=== PATIENT | male | born 1980 | race Caucasian/White ===

== ENCOUNTER 2019-02-14 19:17 | Emergency (ER) | payer OTHER, SELFPAY ==
[2019-02-14 19:26] VITALS: BP 139/77; PULSE 64; RESP 15; TEMP 36.6; O2SAT 96; BMI 22.7
--- NOTE | 2019-02-14 19:30 | ED.ABDPAIN ---
HPI - Abdominal Pain <GIOVANI Sharpe - Last Filed: 02/14/19 22:36> General Chief Complaint: Abdominal Pain Stated Complaint: Kidney stones Time Seen by Provider: 02/14/19 19:18 Source: patient and family Mode of arrival: ambulatory Limitations: no limitations History of Present Illness HPI narrative: 38-year-old healthy male presents emergency department after being seen in the clinic on [facility] this evening for colicky epigastric pain that occurred suddenly while he was sleeping and he was woken by the pain, he complained of associated diaphoresis and difficulty taking a very deep breath. He states it was a sharp cramping 10/10 that resolved after a few hours but then occurred again. At the clinic he was given injection of Toradol which helped relieve the pain. He does not have any pain at this time but he is leaving for [place] on Sunday and is worried about possible complications during trial. He denies alleviating or aggravating factors of his pain. Denies fevers, chills, chest pain, shortness of breath, abdominal pain at this time, nausea, vomiting, diarrhea, dysuria, or syncope. He denies any major abdominal surgeries. MD complaint: abdominal pain Onset (ago): hour(s) Pain Consistency: intermittent Location: epigastric Radiation: none Relieving factors: nothing Exacerbating factors: nothing Related Data Allergies Allergy/AdvReac Type Severity Reaction Status Date / Time No Known Drug Allergies Allergy Verified 02/14/19 19:26 Review of Systems <GIOVANI Sharpe - Last Filed: 02/14/19 22:36> Review of Systems REVIEW OF SYSTEMS: GENERAL: Denies fever, chills, malaise, or wt. loss. HENT: No head trauma, sore throat, or dysphagia. EYES: No loss of vision, double vision, eye pain, or irritation. CARDIOVASCULAR: No chest pain, palpitations, or orthopnea. RESPIRATORY: No shortness of breath or cough. GASTROINTESTINAL: Complains of epigastric abdominal pain, see HPI GENITOURINARY: No flank pain, urinary incontinence, hesitancy, frequency, or dysuria. MUSCULOSKELETAL: No pain, weakness, or trauma. INTEGUMENTARY: No rash, lesions, or pruritus. NEURO: No numbness, tingling, memory loss, confusion, or headaches. PSYCH: No behavior or mood changes. PFSH <GIOVANI Sharpe - Last Filed: 02/14/19 22:36> Medical History No significant medical problems (Acute) Social History Smoking Status: Never smoker Social History Smoking Status: Never smoker Exam <GIOVANI Sharpe - Last Filed: 02/14/19 22:36> Initial Vital Signs Initial Vital Signs: Vital Signs Temperature 97.9 F 02/14/19 19:26 Pulse Rate 64 02/14/19 19:26 Respiratory Rate 15 02/14/19 19:26 Blood Pressure 139/77 02/14/19 19:26 Pulse Oximetry 96 02/14/19 19:26 PHYSICAL EXAMINATION: GENERAL: Well groomed, alert, and cooperative. Answers questions promptly and appropriately. Vital signs noted. HENT: Normocephalic, atraumatic. Hearing intact. Oral mucosa is pink and moist. EYES: Conjunctiva pink, sclera white, no periorbital swelling. CARDIOVASCULAR: S1 and S2 sounds normal. Regular rate and rhythm, no murmurs, clicks, or bruits. No pedal edema. RESPIRATORY: Normal respiratory rate, trachea midline, airway patent. No stridor, nasal flaring or accessory muscle use. Lungs are clear in all [place] without wheeze, rhonchi, or crackles. GASTROINTESTINAL: Bowel sounds normoactive. Abdomen is soft and really nontender, slight increase tenderness to the right epigastric area. No organomegaly, no palpable masses. GENITALURINARY: No flank tenderness. MUSCULOSKELETAL: Normal gait and coordination. Equal tone and mass bilaterally. EXTREMITIES: CMS intact, no pedal edema. SKIN: Warm, dry, soft, appropriate color for ethnicity. No lesions, rashes, or wounds. NEURO: Alert and Oriented X 3. Good coordination. No ataxia, or sensory deficits, or cognitive issues. PSYCH: Appropriate affect and mood. <Jim Yuan DO - Last Filed: 02/15/19 03:45> Initial Vital Signs Initial Vital Signs: Vital Signs Temperature 97.9 F 02/14/19 19:26 Pulse Rate 64 02/14/19 19:26 Respiratory Rate 15 02/14/19 19:26 Blood Pressure 139/77 07/26/19 19:26 Pulse Oximetry 96 02/14/19 19:26 Course <Ivonne GIOVANI Mayorga - Last Filed: 02/14/19 22:36> Course Narrative: An extensive conversation with the patient about seeking surgical care here or about his prevents of returning to his home state. I explained that his symptoms may get worse, and may results in worsening liver enzymes, infection, , or disability. Very strict return precautions were given to patient that if he were to develop any worsening symptoms he was return to the nearest emergency department immediately. If he chose to go home you with to remain on a clear liquid diet as per surgery recommendations and he was to seek care immediately when he returns home. Labs and imaging results were given to patient that he can't take to his appointment. Patient and his partner chose to try to find an earlier flight home so he can seek medical care even quicker. Orders Ordered: ED Orders 02/14/19 19:30 EKG-12 Lead Stat 02/14/19 19:31 US abdomen limited Stat 02/14/19 19:42 Complete Blood Count AUTO DIFF Stat Comprehensive Metabolic Panel Stat Lipase Stat 02/14/19 19:57 Urine Microscopic Stat Reevaluation(s) Reevaluation #1: Patient remains pain free throughout the emergency department stay. Consultations Consultation #1: Consulted the surgeon, Dr. Acuña about patient's request to have his surgery at home in [place]. Dr. Cantor stated that it was ultimately the patient's choice, however if he chose to seek care outside of this hospital, he was to remain on a clear liquid diet and see care as soon as possible. Otherwise, he was to be admitted today. Vital Signs - 8 hr 02/14/19 21:19 Pulse Rate 84 Respiratory Rate 15 Blood Pressure [Left Arm] 125/80 Pulse Oximetry 100 <Jim Yuan DO - Last Filed: 02/15/19 03:45> Orders Ordered: ED Orders 02/14/19 19:30 EKG-12 Lead Stat 02/14/19 19:31 US abdomen limited Stat 02/14/19 19:42 Complete Blood Count AUTO DIFF Stat Comprehensive Metabolic Panel Stat Lipase Stat 02/14/19 19:57 Urine Microscopic Stat Vital Signs - 8 hr 02/14/19 21:19 Pulse Rate 84 Respiratory Rate 15 Blood Pressure [Left Arm] 125/80 Pulse Oximetry 100 MDM - Abdominal Pain <Ivonne MayorgaGIOVANI - Last Filed: 02/14/19 22:36> Medical Records Attestation: I reviewed the patient's medical records. Lab Data Attestation: I reviewed the patient's lab results. Result diagrams: 02/14/19 19:42 02/14/19 19:42 Lab Results 02/14/19 02/14/19 02/14/19 Range/Units 19:42 19:42 19:42 WBC 8.1 (4.5-11.0) X10^3/uL RBC 4.86 (4.5-5.9) X10^6/uL Hgb 14.6 (13.5-17.5) g/dL Hct 41.7 (41-53) % MCV 85.8 (80-100) fL MCH 30.0 (26-34) PG MCHC 35.0 (30-36) % RDW 12.9 (11.6-14.8) % Plt Count 222 (150-400) X10^3/uL Neut % (Auto) 72.6 (50-75) % Lymph % (Auto) 16.9 L (25-40) % [place] % (Auto) 9.9 (3-14) % Eos % (Auto) 0.2 L (2-4) % Baso % (Auto) 0.4 (0-2) % Neut # (Auto) 5900 (1531-1442) /uL Lymph # (Auto) 1400 (3304-4170) /uL [place] # (Auto) 800 (0-900) /uL Eos # (Auto) 0 (0-450) /uL Baso # (Auto) 0 (0-100) /uL Sodium 138 (137-145) mmol/L Potassium 3.7 (3.4-5.1) mmol/L Chloride 103 (98-107) mmol/L Carbon Dioxide 23 (22-32) mmol/L BUN 15 (9-20) mg/dL Creatinine 0.80 (0.66-1.25) mg/dL Estimated GFR > 60.0 (>60) mL/min BUN/Creatinine Ratio 18.8 (6-22) Glucose 112 H (70-100) mg/dL Calcium 10.1 (8.4-10.2) mg/dL Total Bilirubin 1.4 H (0.2-1.3) mg/dL AST 684 H (17-59) IU/L ALT 462 H (21-72) IU/L Alkaline Phosphatase 83 (38-126) U/L Total Protein 7.7 (6.3-8.2) g/dL Albumin 4.9 (3.5-5.0) g/dL Globulin 2.8 (1.7-4.1) g/dL Albumin/Globulin Ratio 1.8 (1.0-2.8) Lipase 107 (23-300) U/L Urine RBC (0-5/HPF) Urine WBC (0-5/HPF) Urine Bacteria (None) Ur Culture Indicated? Micro UA Comment 02/14/19 Range/Units 19:57 WBC (4.5-11.0) X10^3/uL RBC (4.5-5.9) X10^6/uL Hgb (13.5-17.5) g/dL Hct (41-53) % MCV (80-100) fL MCH (26-34) PG MCHC (30-36) % RDW (11.6-14.8) % Plt Count (150-400) X10^3/uL Neut % (Auto) (50-75) % Lymph % (Auto) (25-40) % [place] % (Auto) (3-14) % Eos % (Auto) (2-4) % Baso % (Auto) (0-2) % Neut # (Auto) (9767-8552) /uL Lymph # (Auto) (7914-2557) /uL [place] # (Auto) (0-900) /uL Eos # (Auto) (0-450) /uL Baso # (Auto) (0-100) /uL Sodium (137-145) mmol/L Potassium (3.4-5.1) mmol/L Chloride (98-107) mmol/L Carbon Dioxide (22-32) mmol/L BUN (9-20) mg/dL Creatinine (0.66-1.25) mg/dL Estimated GFR (>60) mL/min BUN/Creatinine Ratio (6-22) Glucose (70-100) mg/dL Calcium (8.4-10.2) mg/dL Total Bilirubin (0.2-1.3) mg/dL AST (17-59) IU/L ALT (21-72) IU/L Alkaline Phosphatase (38-126) U/L Total Protein (6.3-8.2) g/dL Albumin (3.5-5.0) g/dL Globulin (1.7-4.1) g/dL Albumin/Globulin Ratio (1.0-2.8) Lipase (23-300) U/L Urine RBC None seen (0-5/HPF) Urine WBC None seen (0-5/HPF) Urine Bacteria None seen (None) Ur Culture Indicated? Cult not indicated Micro UA Comment Microscopic normal Point of care testing: Urine Dip Bedside Urine Glucose Negative Bedside Urine Bilirubin - Negative Bedside Urine Ketone - Negative Urine Specific [place] 1.020 Bedside Urine Occult Blood - Negative Bedside Urine pH 6.0 Bedside Urine Protein - Negative Bedside Urine Urobilinogen +/- 1mg Bedside Urine Nitrite - Negative Bedside Urine Leukocytes +/- 15 Esterase Imaging Data US - abdomen: Radiologist's impression: [place] [address] Ultrasound Report Signed Patient: Bautista Darden WMR#: [id number] : 1980Acct:[id number] Age/Sex: 38 / MDate of Service: 02/14/19 Loc: ED Accession Number: [id number] Procedure: US abdomen limited Ordering Provider: Ivonne Mayorga PROCEDURE: US ABDOMEN LIMITED INDICATIONS: colicky epigastric pain TECHNIQUE: Real-time focused scanning was performed of the right upper quadrant, with image documentation. COMPARISON: None. FINDINGS: There are gallstones demonstrated within the gallbladder with no definite impacted stone visualized in the region of the gallbladder neck. There is mild gallbladder wall thickening measuring 3-4 mm. There is trace pericholecystic fluid. No intrahepatic biliary ductal dilatation. The visualized common bile duct is within normal limits measuring up to 6 mm. The distal common bile duct is not well visualized. Visualized pancreas demonstrates no peripancreatic fluid collections. Right kidney demonstrates no hydronephrosis. No focal hepatic mass lesion identified. IMPRESSION: 1. Cholelithiasis with mild gallbladder wall thickening and trace pericholecystic fluid may reflect developing cholecystitis. Dictated by: Michael Nur M.D. on 02/14/2019 at 20:52 Approved by: Michael Nur M.D. on 02/14/2019 at 20:59 ECG Data Interpretation: Sinus bradycardia, rate 59, NE interval 139, QTC 386, no ectopy, no ST elevation or ST depression, no T-wave abnormality. Right bundle branch block noted in V1 and V2. EKG was also viewed by Dr. Yuan. [facility] Narrative Medical decision making narrative: Patient's symptoms indicated an acute gallbladder that require surgical intervention (explained laboy of pain, elevated liver enzymes, radiological changes of his gallbladder seen on ultrasound, cholelithiasis). However, patient opted to seek care elsewhere. Strict return precautions were given and follow-up instructions discussed extensively. Very little concern for infection as his white count was not elevated, and he did not exhibit any systemic signs of infection. Very low concern for cardiac disease due to lack of other symptoms such as chest pain or shortness of breath as well as a normal EKG. <Jim Yuan, DO - Last Filed: 02/15/19 03:45> Lab Data Lab Results 02/14/19 02/14/19 02/14/19 Range/Units 19:42 19:42 19:42 WBC 8.1 (4.5-11.0) X10^3/uL RBC 4.86 (4.5-5.9) X10^6/uL Hgb 14.6 (13.5-17.5) g/dL Hct 41.7 (41-53) % MCV 85.8 (80-100) fL MCH 30.0 (26-34) PG MCHC 35.0 (30-36) % RDW 12.9 (11.6-14.8) % Plt Count 222 (150-400) X10^3/uL Neut % (Auto) 72.6 (50-75) % Lymph % (Auto) 16.9 L (25-40) % [place] % (Auto) 9.9 (3-14) % Eos % (Auto) 0.2 L (2-4) % Baso % (Auto) 0.4 (0-2) % Neut # (Auto) 5900 (2770-0715) /uL Lymph # (Auto) 1400 (2712-5324) /uL [place] # (Auto) 800 (0-900) /uL Eos # (Auto) 0 (0-450) /uL Baso # (Auto) 0 (0-100) /uL Sodium 138 (137-145) mmol/L Potassium 3.7 (3.4-5.1) mmol/L Chloride 103 (98-107) mmol/L Carbon Dioxide 23 (22-32) mmol/L BUN 15 (9-20) mg/dL Creatinine 0.80 (0.66-1.25) mg/dL Estimated GFR > 60.0 (>60) mL/min BUN/Creatinine Ratio 18.8 (6-22) Glucose 112 H (70-100) mg/dL Calcium 10.1 (8.4-10.2) mg/dL Total Bilirubin 1.4 H (0.2-1.3) mg/dL AST 684 H (17-59) IU/L ALT 462 H (21-72) IU/L Alkaline Phosphatase 83 (38-126) U/L Total Protein 7.7 (6.3-8.2) g/dL Albumin 4.9 (3.5-5.0) g/dL Globulin 2.8 (1.7-4.1) g/dL Albumin/Globulin Ratio 1.8 (1.0-2.8) Lipase 107 (23-300) U/L Urine RBC (0-5/HPF) Urine WBC (0-5/HPF) Urine Bacteria (None) Ur Culture Indicated? Micro UA Comment 02/14/19 Range/Units 19:57 WBC (4.5-11.0) X10^3/uL RBC (4.5-5.9) X10^6/uL Hgb (13.5-17.5) g/dL Hct (41-53) % MCV (80-100) fL MCH (26-34) PG MCHC (30-36) % RDW (11.6-14.8) % Plt Count (150-400) X10^3/uL Neut % (Auto) (50-75) % Lymph % (Auto) (25-40) % [place] % (Auto) (3-14) % Eos % (Auto) (2-4) % Baso % (Auto) (0-2) % Neut # (Auto) (6359-1082) /uL Lymph # (Auto) (1352-6683) /uL [place] # (Auto) (0-900) /uL Eos # (Auto) (0-450) /uL Baso # (Auto) (0-100) /uL Sodium (137-145) mmol/L Potassium (3.4-5.1) mmol/L Chloride (98-107) mmol/L Carbon Dioxide (22-32) mmol/L BUN (9-20) mg/dL Creatinine (0.66-1.25) mg/dL Estimated GFR (>60) mL/min BUN/Creatinine Ratio (6-22) Glucose (70-100) mg/dL Calcium (8.4-10.2) mg/dL Total Bilirubin (0.2-1.3) mg/dL AST (17-59) IU/L ALT (21-72) IU/L Alkaline Phosphatase (38-126) U/L Total Protein (6.3-8.2) g/dL Albumin (3.5-5.0) g/dL Globulin (1.7-4.1) g/dL Albumin/Globulin Ratio (1.0-2.8) Lipase (23-300) U/L Urine RBC None seen (0-5/HPF) Urine WBC None seen (0-5/HPF) Urine Bacteria None seen (None) Ur Culture Indicated? Cult not indicated Micro UA Comment Microscopic normal Point of care testing: Urine Dip Bedside Urine Glucose Negative Bedside Urine Bilirubin - Negative Bedside Urine Ketone - Negative Urine Specific [place] 1.020 Bedside Urine Occult Blood - Negative Bedside Urine pH 6.0 Bedside Urine Protein - Negative Bedside Urine Urobilinogen +/- 1mg Bedside Urine Nitrite - Negative Bedside Urine Leukocytes +/- 15 Esterase Discharge Plan Departure Patient Disposition: Home Clinical Impression: Cholelithiasis Qualifiers: Cholelithiasis location: gallbladder Cholecystitis presence: with cholecystitis Cholecystitis acuity: acute Biliary obstruction: without biliary obstruction Qualified Code(s): K80.00 - Calculus of gallbladder with acute cholecystitis without obstruction Discharge Date/Time: 02/14/19 21:50 Interventions: ED Discharge Assessment Last Done: 02/14/19 21:49 Instructions: DI for Gallstones Activity Restrictions/Additional Instructions: Thank you for entrusting me with your care today. As discussed, you have gallstones as well as inflammation of her gallbladder which need surgical attention. You have chosen to return to your home state to seek care, please remain on a clear liquid diet until you can be treated. If your symptoms worsen return to the emergency department immediately. Call your hospital tomorrow to arrange appointments, however if this cannot be done please follow up with the emergency department. Return to the emergency department if he develops severe vomiting, fevers, chills, yellowing of the skin or eyes, syncope, chest pain, or shortness of breath. <Jim Yuan DO - Last Filed: 02/15/19 03:45> Cosign ED Attending Marcela Attestation: I was immediately available in the department for consultation. Documentation has been reviewed. I agree with assessment and plan.
[2019-02-14 19:48] LABS: Add Manual Diff / Slide Review NO; Basophils Absolute Auto 0 /uL (0-100); Basophils Percent Auto 0.4 % (0-2); Eosinophils Absolute Auto 0 /uL (0-450); Eosinophils Percent Auto 0.2 % (2-4); Hematocrit 41.7 % (41-53); Hemoglobin 14.6 g/dL (13.5-17.5); Lymphocytes Absolute Auto 1400 /uL (1100-4500); Lymphocytes Percent Auto 16.9 % (25-40); Mean Corpuscular Volume 85.8 fL (80-100); Monocytes Absolute Auto 800 /uL (0-900); Monocytes Percent Auto 9.9 % (3-14); Neutrophils Absolute Auto 5900 /uL (1500-7000); Neutrophils Percent Auto 72.6 % (50-75); Platelet Count 222 X10^3/uL (150-400); Red Blood Cell Count 4.86 X10^6/uL (4.5-5.9); Red Cell Distribution Width 12.9 % (11.6-14.8); White Blood Cell Count 8.1 X10^3/uL (4.5-11.0)
[2019-02-14 20:00] LABS: Alanine Aminotransferase 462 IU/L (21-72); Albumin 4.9 g/dL (3.5-5.0); Albumin Globulin Ratio 1.8 (1.0-2.8); Alkaline Phosphatase 83 U/L (38-126); Aspartate Aminotransferase 684 IU/L (17-59); BUN Creatinine Ratio 18.8 (6-22); Bilirubin Total 1.4 mg/dL (0.2-1.3); Blood Urea Nitrogen 15 mg/dL (9-20); Calcium 10.1 mg/dL (8.4-10.2); Carbon Dioxide 23 mmol/L (22-32); Chloride 103 mmol/L (98-107); Estimated Glomerular Filt Rate > 60.0 mL/min (>60); Globulin 2.8 g/dL (1.7-4.1); Glucose 112 mg/dL (70-100); HEMOLYSIS < 15 (0-50); Lipase 107 U/L (23-300); Potassium 3.7 mmol/L (3.4-5.1); Sodium 138 mmol/L (137-145); Total Protein 7.7 g/dL (6.3-8.2)
[2019-02-14 20:09] LABS: Bacteria Urine None Seen; RBC Urine None Seen (0-5/HPF); WBC Urine None Seen (0-5/HPF)
[2019-02-14 20:16] LABS: Culture Indicated Urine Cult Not Indicated; Urine Comments Microscopic Normal
[2019-02-14 21:19] VITALS: BP 125/80; PULSE 84; RESP 15; O2SAT 100
== END 2019-02-14 21:50 | disposition home or self-care (01) ==
PROVIDERS: Emergency Provider Nurse Practitioner
DX: K80.00 Calculus of gallbladder with acute cholecystitis without obstruction (principal); R10.13 Epigastric pain
CPT/HCPCS: 36415; 76705; 80053; 81003; 81015; 83690; 85025; 93005; 99282; 99285